=== PATIENT | male | born 1955 | race Caucasian/White ===

== ENCOUNTER → 2021-01-25 | Outpatient (CLI) | payer OTHER ==
[2021-01-26 09:14] LABS: RHEUMATOID ARTHRITIS FACTOR <10.0 IU/mL (<14.0)
[2021-01-26 13:14] LABS: ALDOLASE 5.8 U/L (3.3-10.3); ANGIOTENSIN-CONVERTING ENZYME 42 U/L (14-82)
== END ==
LOC: LAB 11:10
PROVIDERS: Internal Medicine
DX: D89.89 Other specified disorders involving the immune mechanism, not elsewhere classified (principal); M25.50 Pain in unspecified joint; R76.8 Other specified abnormal immunological findings in serum; R74.8 Abnormal levels of other serum enzymes; M79.10 Myalgia, unspecified site; R70.0 Elevated erythrocyte sedimentation rate; D80.3 Selective deficiency of immunoglobulin G [IgG] subclasses; M19.042 Primary osteoarthritis, left hand; M19.041 Primary osteoarthritis, right hand
CPT/HCPCS: 36415; 73130; 82085; 82164; 82550; 82728; 83520; 84439; 84443; 85652; 86140; 86200; 86431